=== PATIENT | female | born 1995 | race Caucasian/White ===

== ENCOUNTER → 2019-04-07 | Outpatient (CLI) | payer BC ==
[2014-03-31 21:07] VITALS: BP 168/89
--- NOTE | 2019-04-07 16:53 | RAD ---
EXAM: AP and lateral views of the lumbar spine DATE: 04/07/2019 12:00 AM INDICATION: Low back pain, sciatica COMPARISON: No Prior FINDINGS: 5 nonrib-bearing lumbar-type vertebral bodies. Vertebral body heights are preserved. Intervertebral disc heights are grossly preserved. Mild straightening of the normal lumbar lordosis. No spondylolisthesis. Moderate colonic stool content is seen. IMPRESSION: No evidence for acute fracture or subluxation. Electronically signed by: Hebert Noriega MD (04/07/2019 4:50 PM) [facility]
== END | disposition home or self-care (01) ==
LOC: RAD 13:59
PROVIDERS: ATTEND Internal Medicine
DX: M54.31 Sciatica, right side (principal); M40.46 Postural lordosis, lumbar region
CPT/HCPCS: 72100